=== PATIENT | male | born 1965 | race Two or more races ===

== ENCOUNTER 2024-10-16 10:50 | Outpatient (AMB) | payer MEDICAID, SELFPAY ==
--- NOTE | 2024-10-16 11:12 | MHC.OFFVIS ---
Intake Visit Reasons: post stroke Allergies No Known Allergies Allergy (Verified 10/08/24 11:10) Medication List - Last Reconciled 10/16/24 by Liz Recinos MD acetaminophen mg PO amlodipine 10 mg PO DAILY artifi.tears(hypromellose)(PF) 1.7% 2 drps ophthalmic (eye) Q4-6H PRN aspirin 81 mg PO DAILY atorvastatin 80 mg PO DAILY baclofen 5 mg PO TID carvedilol 6.25 mg PO BID divalproex 500 mg PO BID lisinopril 40 mg PO DAILY ticagrelor mg PO HPI Comments Details: 58 yo RH man with HTN who had symptoms of left sided weakness in April of 2024 when he was admitted at [facility] and was diagnosed with a stroke. Cause of stroke was probably HTN. After hospitalization, he went to rehab where he had another stroke in May. At that time, he had a funny feeling on top of head going to his left side, and his left side got numb. Even now it was numb. He was taken to [facility] again and was prescribed depakote for seizure prevention and later discharged to rehab in [facility]. Now he was at home with left sided numbness. He has been walking with a walker. No heart problems. No LOC. [facility] Medical History (Updated 10/16/24 @ 11:21 by Liz Recinos MD) Hypertension Stroke Review of Systems Const Details: Constitutional:?No fever, chills, fatigue, weight loss, or night sweats. HEENT:?No headache, vision changes, hearing loss, nasal congestion, sore throat. Cardiovascular:?No chest pain, palpitations, orthopnea, PND, or leg swelling. Respiratory:?No cough, shortness of breath, wheezing, or hemoptysis. Gastrointestinal:?No nausea, vomiting, abdominal pain, diarrhea, or constipation. Genitourinary:?No dysuria, frequency, incontinence, or hematuria. Musculoskeletal:?No joint pain, stiffness, weakness, or muscle aches. Neurological:? Complain of numbness and left side of body Psychiatric:?No anxiety, depression, mood swings, sleep disturbance, or hallucinations. Endocrine:?No heat/cold intolerance, polydipsia, polyuria, or hair/skin changes. Hematologic/Lymphatic:?No easy bruising, bleeding, or lymphadenopathy. Integumentary (Skin):?No rash, lesions, itching, or color changes. Allergic/Immunologic:?No seasonal allergies, hives, or recurrent infections. Physical Exam Neuro Other: Mental Status: Alert and oriented to person, place, and time. Normal attention. Normal spontaneous speech, fluency, and comprehension. No obvious issues with mood and memory. Affect is appropriate. Cranial Nerves: CN II: Visual escalona full to confrontation, visual acuity intact. CN III, IV, : Pupils equal, round, reactive to light and accommodation. Extraocular movements are normal. CN V: Facial sensation is normal. CN VII: Facial movements symmetrical. CN VIII: Hearing intact to bedside conversation is normal. CN IX, X: Palate elevates symmetrically. CN XI: Shoulder shrug and head turn symmetrical. CN XII: Tongue midline without atrophy or fasciculations. Motor: Bulk and tone normal in all extremities. No significant muscle weakness in arms and legs. No drift. Reflexes: Deep tendon reflexes 2+ and symmetric. Plantar response down-going bilaterally. Coordination: Nbrluq-jh-mqqj and hcnm-ph-[id number] testing normal. No dysmetria. Gait and Station: No obvious gait abnormality. No ataxia or instability. Sensory: Intact to light touch, pinprick, and vibration. Romberg is negative. Extrapyramidal: Full facial expressions and blinking. No rigidity. Movements are appropriate with no tremor or abnormality. Speech: Normal; no dysarthria or tremor. Assessment & Plan Assessment & Plan (1) Cerebral infarction: Code(s): I63.9 - Cerebral infarction, unspecified Category: Medical Qualifiers: Cerebral infarction mechanism: thrombosis Precerebral and cerebral artery: unspecified cerebral artery Qualified Code(s): I63.30 - Cerebral infarction due to thrombosis of unspecified cerebral artery (2) Seizure disorder: Code(s): G40.909 - Epilepsy, unspecified, not intractable, without status epilepticus Category: Medical Plan Impression: a: Left hemiparesis, mild, from a stroke happened in April 2024 when he was admitted at [facility]. Imaging was not here for confirm or review b: Probably seizure disorder, post stroke Rec: a: Review of MRI at next visit b: Continue aspirin 81 and clopidogrel 75mg daily for now c: Continue statin and BP control d: Continue Depakote 500mg bid e: EEG Orders: Orders EEG electroencephalogram Today G40.909 - Epilepsy, unspecified, not intractable, without status epilepticus Coding Level of Care Code New Pt Level 5 (52134) Diagnoses Cerebral infarction due to thrombosis of cerebral artery I63.30 Cerebral infarction mechanism: thrombosis Precerebral and cerebral artery: unspecified cerebral artery Seizure disorder G40.909
--- OUTSIDE RECORDS SUMMARY | 2024-10-16 11:41 | XMS_ITS | Clinical Summary ---
Author Organization [facility] Address [address] [place] [address] Phone Care Team Providers Care Internal Controls Manager Name Role Phone Rachael Etelvina Primary Care Provider [phone] Allergies No known active allergies Medications amLODIPine (NORVASC) 10 mg tablet Take 1 tablet (10 mg total) by mouth 1 (one) time each day. 30 each 07/31/2024 Active atorvastatin (LIPITOR) 80 mg tablet Take 1 tablet (80 mg total) by mouth 1 (one) time each day. 30 each 07/31/2024 Active carvediloL (COREG) 6.25 mg tablet Take 1 tablet (6.25 mg total) by mouth 2 (two) times a day with meals. 60 each 07/31/2024 Active divalproex (DEPAKOTE) [address] tablet Take 1 tablet (500 mg total) by mouth 2 (two) times a day. Do not crush, chew, or split. 60 each 07/31/2024 Active lisinopril (PRINIVIL,ZESTR IL) 40 mg tablet Take 1 tablet (40 mg total) by mouth 1 (one) time each day. 30 each 07/31/2024 Active baclofen (LIORESAL) 5 mg tablet Take 5mg every morning and 10mg every evening. 90 tablet 07/31/2024 Active Active Problems Problem Noted Date Diagnosed Date Weakness due to old stroke 07/11/2024 Encounters Date Type Department Care Team Description 07/25/2024 Plan of Care Documentation [facility] [address] [place] [address] 07/18/2024 Plan of Care Documentation [facility] [address] [place] [address] 07/11/2024 6:55 PM EDT - 07/31/2024 12:30 PM EDT Hospital Encounter [facility] [address] [place] [address] NaliniMariia DO Weakness due to old stroke (Primary Dx) Discharge Disposition: Home-Health Care Svc from Last 3 Months Medical History Medical History Date Comments CHF (congestive heart failure) ([facility] V24, [facility] V28) HLD (hyperlipidemia) HTN (hypertension) Diabetes ([facility] V24, [facility] V28) Social History Tobacco Use Types Packs/Day Years Used Date Smoking Tobacco: Former Cigarettes Smokeless Tobacco: Never Tobacco Cessation:Counseling Given: Not Answered Alcohol Use Standard Drinks/Week Comments Not Currently 0 (1 standard drink = 0.6 oz pur e alcohol) Health Literacy Answer Date Recorded How often do you need to hav e someone help you when you read instructions, pamphlets, or other written material from your doctor or pharmacy? Always 07/30/2024 Caregiver: How often do you need to have someone help you when you read instructions, pamphlets, or other written material from your doctor or pharmacy? Not on file 07/30/2024 Transportation Answer Date Recorded Has the lack of transportati on kept you from meetings, work, or from getting things needed for daily living? No Has the lack of transportati on kept you from medical appointments or from getting medications? No 07/12/2024 Social Isolation Answer Date Recorded How often do you feel lonely or isolated from those around you? Sometimes 07/30/2024 Food Risk Answer Date Recorded Within the past 12 months we worried whether our food would run out before we got money to buy more. Not asked 07/19/2024 Within the past 12 months th e food we bought just didn't last and we didn't have money to get more. Not asked 07/19/2024 Interpersonal Safety Answer Date Record ed Physical Abuse 07/11/2024 Verbal Abuse 07/11/2024 Sex and Gender Information Value Date Recorded Sex Assigned at Male 07/09/2024 2:35 PM EDT Legal Sex Male 9:35 AM EDT Gender Identity Male 07/09/2024 2:35 PM EDT Sexual Orientation Choose not to disclose 2024 2:35 PM EDT Obstetrics History Last Filed Vital Signs Vital Sign Reading Time Taken Comments Blood Pressure 123/78 07/31/2024 8:53 AM EDT Pulse 75 07/31/2024 8:53 AM EDT Temperature 36.8 C (98.2 F) 07/31/2024 8:53 AM EDT Respiratory Rate 18 07/31/2024 3:41 AM EDT Oxygen Saturation 100% 07/31/2024 8:53 AM EDT Inhaled Oxygen Concentration - - Weight 74.1 kg (163 lb 6.4 oz) 07/28/2024 8:45 A M EDT Height 196 cm (6' 5.17 ) 07/10/2024 10:39 AM EDT Body Mass Index 19.29 07/10/2024 10:39 AM EDT Plan of Treatment Health Maintenance Due Date Last Done Comments Diabetes: Annual Foot Exam 1974 Diabetes: Annual Retina Eye Exam 1974 Hepatitis B Vaccines (1 of 3 - 19+ 3-dose series) 11/10/1983 Pneumococcal Vaccine: 50+ Years (1 of 2 - PCV) 11/10/1983 Zoster Vaccines (1 of 2) 2014 COVID-19 Vaccine (1 - season) 2023 Cholesterol Screening (Lipid Panel) 05/28/2024 Colorectal Cancer Screening: Colonoscopy 05/28/2024 HIV Screening 05/28/2024 Hepatitis C Screening 05/28/2024 Diabetes: Annual Urine Albumin-Creatinine Ratio (uACR) 07/12/2024 Influenza Vaccine (#1) 2024 01/21/2017, 2015 Diabetes: Blood Sugar Control Test (HGBA1C) 01/13/2025 07/13/2024, 07/12/2024 Diabetes: Annual GFR (Glomerular Filtration Rate) 07/25/2025 07/25/2024, 07/20/2024, 07/18/2024, Additional history exists Hypertension/CHF/CAD Annual BMP Blood Test 07/25/2025 07/25/2024, 07/20/2024, 07/18/2024, Additional history exists Social Influencers of Health Screening 07/30/2025 07/30/2024 DTaP,Tdap,and Td Vaccines (2 - Td or Tdap) 01/21/2027 01/21/2017 RSV Immunization Adult Patients (1 - 1-dose 75+ series) 11/10/2039 Depression Screening Completed 07/30/2024 HIB Vaccines Aged Out No longer eligi ble based on patient's age to complete this topic HPV Vaccines Aged Out No longer eligi ble based on patient's age to complete this topic Hepatitis A Vaccines Aged Out No long er eligible based on patient's age to complete this topic IPV Vaccines Aged Out No longer eligi ble based on patient's age to complete this topic MMR Vaccines Aged Out No longer eligi ble based on patient's age to complete this topic Meningococcal ACWY Vaccine Aged Out N o longer eligible based on patient's age to complete this topic Meningococcal B Vaccine Aged Out No l onger eligible based on patient's age to complete this topic RSV Immunization Patients Under 20 months Aged Out No longer eligible based on patient's age to complete this topic Varicella Vaccines Aged Out No longer eligible based on patient's age to complete this topic Procedures Procedure Name Priority Date/Time Associated Diagnosis Comments COMPLETE BLOOD COUNT Routine 07/25/2024 4:37 AM EDT COMPREHENSIVE METABOLIC PANEL Routine 07/25/2024 4:37 AM EDT VAS US DUPLEX LOWER EXT VENOUS LEFT STAT 07/24/2024 10:01 PM EDT Weakness due to old stroke VALPROIC ACID LEVEL, TOTAL Timed 07/23/2024 10:06 AM EDT LAVENDER - EDTA Routine 07/23/2024 10:05 AM EDT EXTRA TUBES Routine 07/23/2024 10:05 AM EDT ECG 12-LEAD STAT 07/20/2024 12:34 PM EDT CBC WITH AUTO DIFFERENTIAL Routine 07/20/2024 4:08 AM EDT CBC AND DIFFERENTIAL Routine 07/20/2024 4:08 AM EDT COMPREHENSIVE METABOLIC PANEL Routine 07/20/2024 4:08 AM EDT COMPLETE BLOOD COUNT Routine 07/18/2024 4:36 AM EDT COMPREHENSIVE METABOLIC PANEL Routine 07/18/2024 4:36 AM EDT HEMOGLOBIN A1C Routine 07/13/2024 11:27 AM EDT from Last 3 Months or Most Recently Relevant to Health Maintenance Results * (ABNORMAL) Complete blood count (07/25/2024 4:37 AM EDT) Only the most recent of2 resultswithin the time period is included. [facility] WBC 7.0 4.8 - 10.8 K/mcL LAB HEMETOLOGY METHOD 07/25/2024 5:43 AM [facility] RBC 4.10(L) 4.50 - 5.50 M/mcL LAB HEMETOLOGY METHOD 07/25/2024 5:43 AM [facility] Hemoglobin 11.6(L) 13.5 - 17.5 g/dL LAB HEMETOLOGY METHOD 07/25/2024 5:43 AM [facility] Hematocrit 32.3(L) 42.0 - 54.0 % LAB HEMETOLOGY METHOD 07/25/2024 5:43 AM [facility] MCV 79.4 79.0 - 98.0 FL LAB HEMETOLOGY METHOD 07/25/2024 5:43 AM [facility] MCH 28.5 27.0 - 32.0 pcg LAB HEMETOLOGY METHOD 07/25/2024 5:43 AM [facility] MCHC 35.9 32.0 - 37.0 g/dL LAB HEMETOLOGY METHOD 07/25/2024 5:43 AM [facility] RDW 15.1(H) 11.0 - 15.0 % LAB HEMETOLOGY METHOD 07/25/2024 5:43 AM EDT [facility] Platelets 114(L) 130 - 400 K/mcL LAB HEMETOLOGY METHOD 07/25/2024 5:43 AM EDT [facility] MPV 12.6(H) 7.0 - 11.0 FL LAB HEMETOLOGY METHOD 07/25/2024 5:43 AM EDT [facility] NRBC 0.0 <1.0 % LAB HEMETOLOGY METHOD 07/25/2024 5:43 AM EDT [facility] NRBC Absolute 0.00 <0.10 K/mcL LAB HEMETOLOGY METHOD 07/25/2024 5:43 AM EDT [facility] Blood Venous blood specimen / Unknown Venipuncture / Unknown 07/25/2024 4:37 AM EDT 07/25/2024 4:55 AM EDT us Brandy MOTA LAB BLOOD ORDERABLES Final R esult [facility] [address] [place] [address], * Comprehensive metabolic panel (07/25/2024 4:37 AM EDT) Only the most recent of3 resultswithin the time period is included. Sodium 141 133 - 145 mmol/L LAB CHEMISTRY METHOD 07/25/2024 5:30 AM EDT [facility] Potassium 3.6 3.5 - 5.5 mmol/L LAB CHEMISTRY METHOD 07/25/2024 5:30 AM EDT [facility] Chloride 107 96 - 110 mmol/L LAB CHEMISTRY METHOD 07/25/2024 5:30 AM EDT [facility] CO2 28 21 - 32 mmol/L LAB CHEMISTRY METHOD 07/25/2024 5:30 AM [facility] Anion Gap 6 3 - 11 LAB CHEMISTRY METHOD 07/25/2024 5:30 AM [facility] Glucose 79 70 - 100 mg/dL LAB CHEMISTRY METHOD 07/25/2024 5:30 AM [facility] BUN 20 5 - 25 mg/dL LAB CHEMISTRY METHOD 07/25/2024 5:30 AM [facility] Creatinine 1.13 0.70 - 1.30 mg/dL LAB CHEMISTRY METHOD 07/25/2024 5:30 AM [facility] eGFR 75 >=60 mL/min/1. 73m2 LAB CHEMISTRY METHOD 07/25/2024 5:30 AM [facility] Comment:Calculation based on the Chronic Kidney Disease Epidemiology Collaboration (CKD-EPI) equation refit without adjustment for race. BUN/Creatinine Ratio 17.7 LAB CHEMISTRY METHOD 07/25/2024 5:30 AM [facility] Calcium 8.5 8.5 - 10.5 mg/dL LAB CHEMISTRY METHOD 07/25/2024 5:30 AM [facility] AST (SGOT) 11 10 - 42 unit/L LAB CHEMISTRY METHOD 07/25/2024 5:30 AM [facility] ALT (SGPT) 22 10 - 60 unit/L LAB CHEMISTRY METHOD 07/25/2024 5:30 AM [facility] Alkaline Phosphatase 50 42 - 121 unit/L LAB CHEMISTRY METHOD 07/25/2024 5:30 AM [facility] Total Protein 6.0 6.0 - 8.0 g/dL LAB CHEMISTRY METHOD 07/25/2024 5:30 AM [facility] Albumin 3.2 3.2 - 5.0 g/dL LAB CHEMISTRY METHOD 07/25/2024 5:30 AM [facility] Total Bilirubin 0.5 0.0 - 1.4 mg/dL LAB CHEMISTRY METHOD 07/25/2024 5:30 AM EDT [facility] Blood Venous blood specimen / Unknown Venipuncture / Unknown 07/25/2024 4:37 AM EDT 07/25/2024 4:55 AM EDT Brandy MOTA LAB BLOOD ORDERABLES Final R esult [facility] [address] [place] [address], [place] [phone] * Vascular US duplex lower extremity venous left (07/24/2024 10:01 PM EDT) Anatomical Region Laterality Modality Vascular, Abdomen Ultrasound 07/24/2024 10:0 2 PM EDT Impressions 07/24/2024 10:02 PM EDT 1. Negative for left lower extremity deep vein thrombosis. This document has been electronically signed by: Donte Cuellar MD on 07/24/2024 22:02:42 Narrative 07/24/2024 10:02 PM EDT INDICATION: Leg deep vein thrombosis (DVT) suspected Venous duplex ultrasound left lower extremity Comparison: None Findings: The visualized deep veins are fully compressible with normal Doppler color flow and spectral tracings. No popliteal cyst. Procedure Note Donte Cuellar MD - 07/24/2024 INDICATION: Leg deep vein thrombosis (DVT) suspected Venous duplex ultrasound left lower extremity Comparison: None Findings: The visualized deep veins are fully compressible with normal Dopplercolor flow and spectral tracings. No popliteal cyst. IMPRESSION: 1. Negative for left lower extremity deep vein thrombosis. This document has been electronically signed by: Donte Cuellar MD on 07/24/2024 22:02:42 Guillermina MOTA CV VASCULAR PROCEDURES Final Result * Valproic acid level, total (07/23/2024 10:06 AM EDT) Valproic Acid, Total 81 50 - 100 mcg/mL LAB CHEMISTRY METHOD 07/23/2024 11:20 AM EDT [facility] Blood Venous blood specimen / Unknown Venipuncture / Unknown 07/23/2024 10:06 AM EDT 07/23/2024 10:14 AM EDT Janis Marshall NP LAB BLOOD ORDERABLES Final Result Performing Organization Address City/[facility]/ZIP Co de Phone Number [facility] [address] [place] [address], [place] [phone] * Lavender tube (07/23/2024 10:05 AM EDT) Pathologist [facility] Extra Tube Hold for add-ons. 07/23/2024 12:01 PM EDT [facility] Comment:Auto resulted. Blood Venous blood specimen / Unknown 07/23/2024 10:05 AM EDT 07/23/2024 10:14 AM EDT Mariia Gayle DO LAB BLOOD ORDERABLES Rosio l Result Performing Organization Address [facility] Co de Phone Number [facility] [address] [place] [address], [place] [phone] * ECG 12 lead (07/20/2024 12:34 PM EDT) Ventricular Rate ECG 62 BPM GEMUSE Atrial Rate 62 BPM GEMUSE P-R Interval 164 ms GEMUSE QRS Duration 96 ms GEMUSE Q-T Interval 384 ms GEMUSE QTc 389 ms GEMUSE P Wave [place] 55 degrees GEMUSE R [place] 0 degrees GEMUSE T [place] -21 degrees GEMUSE ECG Interpretation Normal sinus rhythm Minimal voltage criteria for LVH, may be normal variant Nonspecific T wave abnormality Abnormal ECG No previous ECGs available Confirmed by MD Goetz Christopher ([id number]) on 07/21/2024 7:47:21 AM GEMUSE 07/20/2024 12:3 4 PM EDT 07/21/2024 7:47 AM EDT us Mariia Gayle DO ECG ORDERABLES Final Res ult GEMUSE * (ABNORMAL) CBC auto differential (07/20/2024 4:08 AM EDT) WBC 6.1 4.8 - 10.8 K/mcL LAB [facility]EM[facility]OLOG[facility] RBC 4.00(L) 4.50 - 5.50 M/mcL LAB HEMETOLOGY METHOD 07/20/2024 4:39 AM [facility] Hemoglobin 11.0(L) 13.5 - 17.5 g/dL LAB HEMETOLOGY METHOD 07/20/2024 4:39 AM [facility] Hematocrit 31.5(L) 42.0 - 54.0 % LAB HEMETOLOGY METHOD 07/20/2024 4:39 AM [facility] MCV 78.0(L) 79.0 - 98.0 FL LAB HEMETOLOGY METHOD 07/20/2024 4:39 AM [facility] MCH 27.2 27.0 - 32.0 pcg LAB HEMETOLOGY METHOD 07/20/2024 4:39 AM [facility] MCHC 34.9 32.0 - 37.0 g/dL LAB HEMETOLOGY METHOD 07/20/2024 4:39 AM [facility] RDW 14.8 11.0 - 15.0 % LAB HEMETOLOGY METHOD 07/20/2024 4:39 AM [facility] Platelets 113(L) 130 - 400 K/mcL LAB HEMETOLOGY METHOD 07/20/2024 4:39 AM [facility] MPV 10.7 7.0 - 11.0 FL LAB HEMETOLOGY METHOD 07/20/2024 4:39 AM [facility] NRBC 0.0 <1.0 % LAB HEMETOLOGY METHOD 07/20/2024 4:39 AM [facility] NRBC Absolute 0.00 <0.10 K/mcL LAB HEMETOLOGY METHOD 07/20/2024 4:39 AM [facility] Neutrophils Relative 24.7 % LAB HEMETOLOGY METHOD 07/20/2024 4:39 AM [facility] Lymphocytes Relative 62.8 % LAB HEMETOLOGY METHOD 07/20/2024 4:39 AM [facility] Monocytes Relative 10.2 % LAB HEMETOLOGY METHOD 07/20/2024 4:39 AM [facility] Eosinophils Relative 1.8 % LAB HEMETOLOGY METHOD 07/20/2024 4:39 AM [facility] Basophils Relative 0.2 % LAB HEMETOLOGY METHOD 07/20/2024 4:39 AM [facility] Immature Granulocytes Relative 0.3 % LAB HEMETOLOGY METHOD 07/20/2024 4:39 AM [facility] Neutrophils Absolute 1.50 1.50 - 7.00 K/mcL LAB HEMETOLOGY METHOD 07/20/2024 4:39 AM [facility] Lymphocytes Absolute 3.82 1.00 - 5.00 K/mcL LAB HEMETOLOGY METHOD 07/20/2024 4:39 AM [facility] Monocytes Absolute 0.62 0.20 - 1.00 K/mcL LAB HEMETOLOGY METHOD 07/20/2024 4:39 AM [facility] Eosinophils Absolute 0.11 0.00 - 0.50 K/mcL LAB HEMETOLOGY METHOD 07/20/2024 4:39 AM [facility] Basophils Absolute 0.01 0.00 - 0.20 K/mcL LAB HEMETOLOGY METHOD 07/20/2024 4:39 AM EDT [facility] Immature Granulocytes Absolute 0.02 0.00 - 0.03 K/[facility] LAB HEMETOLOGY METHOD 07/20/2024 4:39 AM EDT [facility] Blood Venous blood specimen / Unknown Venipuncture / Unknown 07/20/2024 4:08 AM EDT 07/20/2024 4:29 AM EDT us Brandy MOTA LAB BLOOD ORDERABLES Final R esult [facility] [address] [place] [address], [place] [phone] * Hemoglobin A1c (07/13/2024 11:27 AM EDT) Hemoglobin A1C 5.8 <6.5 % LAB CHEMISTRY METHOD 07/15/2024 11:19 AM EDT [facility] Mean Bld Glu Estim. 120 mg/dL LAB CHEMISTRY METHOD 07/15/2024 11:19 AM EDT [facility] Blood Venous blood specimen / Unknown Venipuncture / Unknown 07/13/2024 11:27 AM EDT 07/13/2024 11:39 AM EDT Brandy MOTA LAB BLOOD ORDERABLES Final R esult [facility] [address] [place] [address], [place] [phone] from Last 3 Months or Most Recently Relevant to Health Maintenance Insurance [facility] Advance Directives Documents on File Type Date Recorded Patient University Administrative Assistant Expl anation Advance Directives and Living Will 08/03/2024 5:32 PM PROXY Advance Directives and Living Will 07/12/2024 9:18 AM HEALTH CARE PROXY * Full Code - Default (Latest Code Status on File) Date Activated Date Inactivated Comments 07/11/2024 9:04 PM 07/31/2024 3:01 PM This is orde r is used when code status has not been discussed with the patient, or code status is otherwise unknown/unconfirmed To update the patient's code status, place a code status order. Do not modify or discontinue any currently active code status orders. Care Teams Internal Controls Manager Relationship Specialty Start Date End Date Etelvina Graves [address] [facility] [address] [address] PCP - General Family Medicine 07/12/24
== END 2024-10-16 11:34 | disposition home or self-care (01) ==
LOC: HO.HSM 10:51
PROVIDERS: PCP Nurse Practitioner Family; Referring Provider Nurse Practitioner Family; Visit Provider Psychiatry & Neurology Neurology
DX: I69.354 Hemiplegia and hemiparesis following cerebral infarction affecting left non-dominant side (principal); G40.909 Epilepsy, unspecified, not intractable, without status epilepticus
CPT/HCPCS: 99204

== ENCOUNTER → 2024-10-16 10:50 | Outpatient (BNVA) | payer OTHER, SELFPAY | PROVIDERS: PCP Nurse Practitioner Family; Referring Provider Nurse Practitioner Family; Visit Provider Psychiatry & Neurology Neurology | DX: I63.30 Cerebral infarction due to thrombosis of unspecified cerebral artery (principal); G40.909 Epilepsy, unspecified, not intractable, without status epilepticus | CPT/HCPCS: 99202 ==

== ENCOUNTER 2024-11-01 14:11 | Outpatient (REF) | payer OTHER, SELFPAY ==
--- NOTE | 2024-11-01 15:59 | EEG_ITS ---
Roomed Performed:?[id number] Reason: Epilepsy History: (include when last event occurred)?HTN who had symptoms of left sided weakness in April of 2024 when he was admitted at [facility] and was diagnosed with a stroke. Cause of stroke was probably HTN. After hospitalization, he went to rehab where he had another stroke in May. At that time, he had a funny feeling on top of head going to his left side, and his left side got numb Medication: acetaminophen, amlodipine, artifi.tears(hypromellose)(PF) 1.7%, aspirin 81, atorvastatin, baclofen carvedilol, divalproex, lisinopril, ticagrelor Technical description:? Photic stimulation:Completed Hyperventilation:?Comoleted Behavioral state: calm, pleasant State of Consciousness: awake Skull defect: yes Sedation: none Handedness: right Duration of study:? 30min ? ? sec Description: This is a 16 channel EEG with an EKG lead. Patient is reported awake during the tracing. Background EEG rhythm is 7-8 hertz 5-50 microvolt posteriorly lower amplitude fast anteriorly. Photic stimulation does not produce any significant abnormality. Hyperventilation is unremarkable. Rare left temporal sharp waves were noted. Cardiac lead does not reveal any significant abnormality. Impression: Abnormal EEG suggestive of left temporal irritability. MTDD
--- OUTSIDE RECORDS SUMMARY | 2024-11-01 17:59 | XMS_ITS | Clinical Summary ---
Author Organization [facility] Address [address] [place] [address] Care Team Providers [employer] Name Role Phone Unavailable Primary Care Provider Unavailabl e Source Comments PLEASE NOTE, if this patient is a minor, it may be UNLAWFUL to discuss sensitive information that is contained in these records (such as FAMILY PLANNING, MENTAL HEALTH or SUBSTANCE ABUSE) with the minor patient's parent or other person without the patient's specific authorization.[facility] Medications No known medications Active Problems No known active problems Social History Tobacco Use Types Packs/Day Years Used Date Smoking Tobacco: Never Assessed Social Connections Answer Date Recorded Connectedness 0 11/10/2023 Financial Resource Strain Answer Date R ecorded Financial Resource Strain 0 2022 Stress Answer Date Recorded Stress 0 03/11/2022 Physical Activity Answer Date Recorded Physical Activity 0 03/11/2022 Food Insecurity Answer Date Recorded Food 0 11/17/2023 Transportation Needs Answer Date Record ed Transportation 0 03/11/2022 Housing Stability Answer Date Recorded Housing 0 03/11/2022 Safety and Environment Answer Date Td rded Safety 0 03/11/2022 Utilities Answer Date Recorded Utilities 0 03/11/2022 Employment Answer Date Recorded Stress 0 11/10/2023 Sex and Gender Information Value Date Recorded Sex Assigned at Not on file Legal Sex Male 7:21 AM PDT Gender Identity Not on file Sexual Orientation Not on file Last Filed Vital Signs Vital Sign Reading Time Taken Comments Blood Pressure 194/119 03/11/2022 3:10 PM EST Pulse 94 03/11/2022 3:10 PM EST Temperature - - Respiratory Rate - - Oxygen Saturation - - Inhaled Oxygen Concentration - - Weight - - Height - - Body Mass Index - - Plan of Treatment Health Maintenance Due Date Last Done Comments Anxiety Screening 1964 Dental Perio Charting 1964 Dental Prophy 1964 Diabetes Screening 1964 Hepatitis C Screening 1964 Lipid Screening 1964 Tobacco Screening 1964 HIV Screening 11/10/1979 Imm-DTaP/Tdap/Td (1 - Tdap) 11/10/1983 Imm-Hepatitis B (1 of 3 - 19+ 3-dose series) 4 CT Colonography 2009 Colonoscopy 2009 Colorectal Cancer Screening 2009 FIT/gFOBT 2009 Fecal DNA 2009 Flexible Sigmoidoscopy 2009 Imm-Pneumococcal 50+ (1 of 1 - PCV) 2014 Imm-Zoster, Recombinant (1 of 2) 2014 Hypertension Screening (#1) 03/11/2023 Dental BW 03/13/2023 03/11/2022 Dental Examination 03/13/2023 03/11/2022 Alcohol and Drug Screen 02/22/2024 Depression Annual Screen 02/22/2024 [id number] (1 - season) 2024 Imm-Influenza (#1) 2024 Dental FMX/Pano 03/13/2027 03/11/2022 Procedures Procedure Name Priority Date/Time Associated Diagnosis Comments INTRAORAL - COMP SERIES OF RADIOGRAPHIC IMAGES Routine 03/11/2022 3:00 PM EST Gingivitis, chronic, plaque induced PERIODIC ORAL EVALUATION ESTABLISHED PATIENT Routine 03/11/2022 3:00 PM EST Gingivitis, chronic, plaque induced from Last 3 Months or Most Recently Relevant to Health Maintenance
== END 2024-11-01 14:12 | disposition home or self-care (01) ==
LOC: HO.NEURO 14:11
PROVIDERS: PCP Nurse Practitioner Family; Visit Provider Psychiatry & Neurology Neurology
DX: G40.909 Epilepsy, unspecified, not intractable, without status epilepticus (principal); R94.01 Abnormal electroencephalogram [EEG]; Z79.899 Other long term (current) drug therapy; Z86.73 Personal history of transient ischemic attack (TIA), and cerebral infarction without residual deficits
CPT/HCPCS: 95816

== ENCOUNTER → 2024-11-01 15:59 | Outpatient (BNV) | payer OTHER, SELFPAY | PROVIDERS: PCP Nurse Practitioner Family; Visit Provider Psychiatry & Neurology Neurology | DX: R94.01 Abnormal electroencephalogram [EEG] (principal); G40.909 Epilepsy, unspecified, not intractable, without status epilepticus | CPT/HCPCS: 95816 ==